=== PATIENT | female | born 1980 | race Two or more races ===

== ENCOUNTER 2019-11-12 12:00 | Inpatient (IN) | payer MEDICAID, OTHER, SELFPAY ==
[~2019-11-12] VITALS: Ht 170.2 cm; Wt 103.5 kg
[2019-11-12] MEDS ORDERED: SODIUM CHLORIDE 0.9% 1,000 ML IVB ONE (12:56)
[2019-11-12] MEDS ORDERED: SODIUM CHLORIDE 0.9% 1,000 ML IV ONE (12:56)
[2019-11-12 16:20] LABS: Basophils # (auto) 0 10 ^3/uL (0-0.2); Basophils % (auto) 0.2 % (0.0-2.0); Eosinophils # (auto) 0 10 ^3/uL (0-0.8); Hematocrit 42.6 % (36.0-46.0); Hemoglobin 13.9 g/dL (12.2-16.2); Lymphocytes # (auto) 1.5 10 ^3/uL (0.4-5.4); Lymphocytes % (auto) 19.4 % (10.0-50.0); Mean Corpuscular Hemoglobin 28.6 pg (28.0-32.0); Mean Corpuscular Hgb Conc. 32.6 g/dL (32.0-36.0); Mean Corpuscular Volume 87.6 fL (80.0-100.0); Monocytes # (auto) 0.6 10 ^3/uL (0-1.3); Monocytes % (auto) 7.4 % (0.0-12.0); Neutrophils # (auto) 5.6 10 ^3/uL (1.6-8.6); Nucleated Red Blood Cells % 0.1 %; Platelet Count (auto) 237 10^3/uL (140-450); Red Blood Cells 4.87 10^6/uL (4.0-5.20); Red Cell Distribution Width 14.4 % (11.8-14.3); White Blood Cell 7.6 10^3/uL (4.4-10.8)
[2019-11-12 16:38] LABS: Alanine Aminotransferase 36 U/L (13-56); Albumin 3.3 g/dL (3.4-5.0); Anion Gap 10 (5-15); Aspartate Aminotransferase 24 U/L (15-37); Blood Urea Nitrogen 10 mg/dL (7-18); Calcium 8.8 mg/dL (8.5-10.1); Carbon Dioxide 25 mmol/L (21-32); Chloride 103 mmol/L (98-107); GFR African American 107 mL/min; GFR Non-African American 88 mL/min; Glucose 69 mg/dL (74-106); Potassium 3.1 mmol/L (3.5-5.1); Sodium 138 mmol/L (136-145)
[2019-11-12 16:43] LABS: Alkaline Phosphatase 68 U/L (45-117); Bilirubin, Total 0.5 mg/dL (0.2-1.0)
[2019-11-12 16:47] LABS: Beta HCG, Quantitative < 1 mlU/mL (1-3); Thyroid Stimulating Hormone 0.33 uIU/mL (0.358-3.74)
[2019-11-12] MEDS ORDERED: cefTRIAXone 1GM/50ML D5W 50 ML IV ONE (18:00)
[2019-11-12] MEDS ORDERED: AZITHROMYCIN 500MG/ 250ML 250 ML IV ONE (18:00)
[2019-11-12] MEDS ORDERED: DexAMETHasone SOD PHOS 4 MG/1ML SDV INJ IV ONE (18:00)
[2019-11-12] MEDS ORDERED: POTASSIUM EFFERVESENT TAB 25 MEQ PO ONE (18:00)
[2019-11-12] MEDS ORDERED: ASCORBIC ACID 500 MG TAB PO ONE (18:00)
[2019-11-12] MEDS ORDERED: ZINC SULFATE 220mg CAP or TAB PO ONE (18:00)
[2019-11-12 19:04] LABS: Urine Bacteria NONE SEEN /hpf (None Seen); Urine Blood 1+ /uL (Negative); Urine Mucus FEW (None Seen); Urine Specific Gravity 1.033 (1.001-1.035); Urine WBC 9 /hpf (0 - 5)
[2019-11-12 20:52] LABS: CRP High Sensitivity 5.57 mg/dL (< 0.3)
[2019-11-12] MEDS ORDERED: HYDROcodone-ACET 5/325MG TAB PO PRN (21:00)
[2019-11-12] MEDS ORDERED: NITROGLYCERIN 0.4 MG SL TAB SL PRN (21:00)
[2019-11-12] MEDS ORDERED: HYDROmorphone HCL 2 MG/ML VL IV PRN (21:00)
[2019-11-12] MEDS ORDERED: DOCUSATE SOD 100 MG CAP PO PRN (21:00)
[2019-11-12] MEDS ORDERED: ONDANSETRON HCL 4 MG/2 ML VIAL IV PRN (21:00)
[2019-11-12] MEDS ORDERED: ACETAMINOPHEN 500 MG TAB PO PRN (21:00)
[2019-11-12] MEDS ORDERED: MORPHINE SULF INJ 2 MG/ML SYRINGE 1ML IV PRN ×2 (21:00)
[2019-11-12] MEDS ORDERED: POTASSIUM CHL 20 Meq TABLET PO ONE (21:15)
[2019-11-12] MEDS ORDERED: IOHEXOL 350 MG/ML 100ML IJ ONE (21:25)
[2019-11-12] MEDS: ALBUTEROL SULF HFA 90MCG INH 200DOSE IN SCH (22:00)
--- NOTE | 2019-11-12 23:00 | NUR ---
MS admit from [facility] admitted to tele/MS. Patient oriented to AYE AYON RN primary RN, room 237. Patient weighed by bedscale and encouraged to call if they need something. All questions and concerns addressed, patient verbalized understanding. Bed locked, in lowest position, call light within reach, side rails up x2. Will continue to monitor Q 1hr and PRN.
[2019-11-12] MEDS: SODIUM CHLOR 0.9% PF (SALINE LOCK) 10ML VIAL/SYR IV SCH (23:59)
[2019-11-12] MEDS: ENOXAPARIN SOD 100 MG/1 ML SYRINGE SC SCH (23:59)
[2019-11-13 00:05] VITALS: BP 118/83
[2019-11-13 05:00] VITALS: BP 116/58
[2019-11-13] MEDS: SODIUM CHLOR 0.9% PF (SALINE LOCK) 10ML VIAL/SYR IV SCH ×2 (06:49→13:05)
[2019-11-13 07:10] LABS: Basophils # (auto) 0 10 ^3/uL (0-0.2); Basophils % (auto) 0.2 % (0.0-2.0); Eosinophils # (auto) 0 10 ^3/uL (0-0.8); Hematocrit 41.1 % (36.0-46.0); Hemoglobin 13.4 g/dL (12.2-16.2); Lymphocytes # (auto) 1.1 10 ^3/uL (0.4-5.4); Lymphocytes % (auto) 23.2 % (10.0-50.0); Mean Corpuscular Hemoglobin 28.3 pg (28.0-32.0); Mean Corpuscular Hgb Conc. 32.5 g/dL (32.0-36.0); Mean Corpuscular Volume 87.3 fL (80.0-100.0); Monocytes # (auto) 0.2 10 ^3/uL (0-1.3); Monocytes % (auto) 5.1 % (0.0-12.0); Neutrophils # (auto) 3.5 10 ^3/uL (1.6-8.6); Neutrophils % (auto) 71.5 % (37.0-80.0); Nucleated Red Blood Cells % 0.1 %; Platelet Count (auto) 252 10^3/uL (140-450); Red Blood Cells 4.71 10^6/uL (4.0-5.20); White Blood Cell 4.8 10^3/uL (4.4-10.8)
--- NOTE | 2019-11-13 07:20 | NUR ---
Opening Shift Note Assumed care of patient, awake and alert. No S/S of distress/SOB or pain. Insructed on POC and to callfor assist PRN, will continue to monitor for changes Q1hr and PRN.
[2019-11-13] MEDS: ALBUTEROL SULF HFA 90MCG INH 200DOSE IN SCH ×2 (07:30→13:05)
[2019-11-13 07:37] LABS: Potassium 3.8 mmol/L (3.5-5.1)
--- NOTE | 2019-11-13 07:40 | NUR ---
PT. REFUSED TX., PT. STATES SHE DOESN'T NEED TX'S. , SHE STATE HER OXYGEN SATURATIONS HAVE BEEN 100% FOR TWO DAYS. PT. ALSO DENIES ANY SOB. HR=77,RR=16, WI04=028%. Addendum: 11/13/19 at 0951 by Linda Ortiz RT Amended: Links added.
[2019-11-13 07:52] LABS: Albumin 3.2 g/dL (3.4-5.0); Bilirubin, Total 0.4 mg/dL (0.2-1.0); Calcium 8.5 mg/dL (8.5-10.1); Magnesium 2.4 mg/dL (1.6-2.6)
[2019-11-13] MEDS ORDERED: IOHEXOL 350 MG/ML 100ML IJ ONE (08:08)
--- NOTE | 2019-11-13 08:21 | NUR ---
RADIOLOGY, SECURITY Called to transport pt to CT for angio pt awaiting in ANTE room N95 mask on
[2019-11-13 09:00] VITALS: BP 128/78
[2019-11-13] MEDS: ENOXAPARIN SOD 100 MG/1 ML SYRINGE SC SCH (09:37)
[2019-11-13] MEDS ORDERED: CHOLECALCIFEROL (VITD3) 1,000UNIT=25mCg TAB PO SCH (10:00)
[2019-11-13] MEDS ORDERED: AZITHROMYCIN 250 MG TAB PO SCH (10:00)
[2019-11-13] MEDS ORDERED: ZINC SULFATE 220mg CAP or TAB PO SCH (10:00)
[2019-11-13] MEDS ORDERED: ASCORBIC ACID 1,000 MG TAB PO SCH (10:00)
[2019-11-13] MEDS ORDERED: cefTRIAXone 1GM/50ML D5W 50 ML IV SCH (10:00)
[2019-11-13 13:00] VITALS: BP 130/62
--- NOTE | 2019-11-13 13:01 | NUR ---
MD FU ROUNDED ON PATIENT PLAN FOR DISCHARGE TODAY
--- NOTE | 2019-11-13 13:57 | NUR ---
PAGED MD FU PATIENTSTATES THERE RIDE IS HERE ALREADY INFORMED PATIENT THAT ORDERS HAVE NOT BEEN INPUTED
--- NOTE | 2019-11-13 14:11 | NUR ---
PAGED MD BEST REGARDING PT DISCHARE
--- NOTE | 2019-11-13 14:57 | NUR ---
pt discharged home off unit iv removed tele box removed sent back to tele room
== END 2019-11-13 14:57 | disposition home or self-care (01) | DRG 137 ==
LOC: ER 12:00 → TELE 12:01 → TELE-EAST 22:48
PROVIDERS: ADMIT Internal Medicine; ATTEND Internal Medicine
DX: U07.1 COVID-19 (principal); J12.89 Other viral pneumonia; N39.0 Urinary tract infection, site not specified; I10 Essential (primary) hypertension; E87.6 Hypokalemia; E66.9 Obesity, unspecified; Z68.35 Body mass index [BMI] 35.0-35.9, adult
CPT/HCPCS: 36415; 71045; 71275; 80053; 81001; 82728; 83036; 83605; 83615; 83735; 84439; 84443; 84484; 84702; 85025; 85379; 85652; 86141; 87070; 87804; 87880; 93005; 96365; 96367; 96375; G0378; J0696; J1100

== ENCOUNTER 2021-08-11 13:29 | Emergency (ER) | payer MEDICAID, OTHER ==
[~2021-08-11] VITALS: Ht 170.2 cm; Wt 100.2 kg
[2021-08-11 14:04] LABS: Urine Bacteria NONE SEEN /hpf (None Seen); Urine Blood 3+ /uL (Negative); Urine WBC 425 /hpf (0 - 5)
[2021-08-11 14:30] VITALS: BP 138/81
[2021-08-11] MEDS ORDERED: SULF400T11 PO (14:39)
[2021-08-11] MEDS ORDERED: PRED20TA2 PO (14:39)
[2021-08-11] MEDS ORDERED: PHEN200T16 PO (14:39)
== END 2021-08-11 14:56 | disposition home or self-care (01) ==
LOC: ER 13:29
DX: N39.0 Urinary tract infection, site not specified (principal); L23.9 Allergic contact dermatitis, unspecified cause
CPT/HCPCS: 81001

== ENCOUNTER 2022-03-03 14:57 | Inpatient (IN) | payer OTHER ==
[~2022-03-03] VITALS: Ht 170.2 cm; Wt 100.0 kg
[~2022-03-03 14:57] MED LIST: PHEN200T16 PO; PRED20TA2 PO; SULF400T11 PO
[2022-03-03 15:27] LABS: Basophils # (auto) 0.1 10 ^3/uL (0-0.2); Basophils % (auto) 1.2 % (0.0-2.0); Eosinophils # (auto) 0.1 10 ^3/uL (0-0.8); Eosinophils % (auto) 1.6 % (0.0-7.0); Hematocrit 38.1 % (36.0-46.0); Hemoglobin 12.7 g/dL (12.2-16.2); Lymphocytes # (auto) 2.7 10 ^3/uL (0.4-5.4); Lymphocytes % (auto) 34.4 % (10.0-50.0); Mean Corpuscular Hemoglobin 28.6 pg (28.0-32.0); Mean Corpuscular Hgb Conc. 33.2 g/dL (32.0-36.0); Mean Corpuscular Volume 86.2 fL (80.0-100.0); Monocytes # (auto) 0.6 10 ^3/uL (0-1.3); Neutrophils # (auto) 4.4 10 ^3/uL (1.6-8.6); Neutrophils % (auto) 55.8 % (37.0-80.0); Nucleated Red Blood Cells % 0.1 %; Red Blood Cells 4.43 10^6/uL (4.0-5.20); Red Cell Distribution Width 14.8 % (11.8-14.3); White Blood Cell 7.9 10^3/uL (4.4-10.8)
[2022-03-03 15:47] LABS: Albumin 3.2 g/dL (3.4-5.0); BUN/Creatinine Ratio 10.5; Calcium 8.6 mg/dL (8.5-10.1)
[2022-03-03 15:51] LABS: Bilirubin, Total 0.4 mg/dL (0.2-1.0); Total Protein 6.8 g/dL (6.4-8.2)
[2022-03-03] MEDS ORDERED: ONDANSETRON HCL 4 MG/2 ML VIAL IV ONE (17:45)
[2022-03-03] MEDS ORDERED: NITROGLYCERIN 0.4 MG SL TAB SL ONE (17:45)
[2022-03-03] MEDS ORDERED: MORPHINE SULFATE INJ 2 MG/ml SYRG IV ONE (17:45)
[2022-03-03] MEDS ORDERED: NITROGLYCERIN 0.4 MG SL TAB SL PRN (18:45)
[2022-03-03] MEDS ORDERED: ONDANSETRON HCL 4 MG/2 ML VIAL IV PRN (18:45)
[2022-03-03] MEDS ORDERED: MORPHINE SULFATE 4 MG/ML SYR/VIAL IV PRN (18:45)
[2022-03-03] MEDS ORDERED: ACETAMINOPHEN 325 MG TAB PO PRN (18:45)
[2022-03-03] MEDS ORDERED: ATORVASTATIN 20 MG TAB PO ONE (18:45)
[2022-03-03 20:23] VITALS: BP 134/67
[2022-03-04] MEDS ORDERED: ASPirin 325 MG TAB PO SCH (10:00)
[2022-03-04] MEDS ORDERED: LISINOPRIL 5 MG TAB PO SCH (10:00)
[2022-03-04] MEDS ORDERED: DOCUSATE SOD 100 MG CAP PO SCH (10:00)
== END 2022-03-04 00:59 | disposition left against medical advice (07) | DRG 198 ==
LOC: ER 14:57 → TELE 18:45
PROVIDERS: ADMIT Nurse Practitioner Family; ATTEND Nurse Practitioner Family
DX: I24.9 Acute ischemic heart disease, unspecified (principal); E44.1 Mild protein-calorie malnutrition; R09.1 Pleurisy; I10 Essential (primary) hypertension; Z53.29 Procedure and treatment not carried out because of patient's decision for other reasons; Z86.16 Personal history of COVID-19; Z90.49 Acquired absence of other specified parts of digestive tract; Z83.3 Family history of diabetes mellitus; Z68.34 Body mass index [BMI] 34.0-34.9, adult; Z82.49 Family history of ischemic heart disease and other diseases of the circulatory system; Z98.51 Tubal ligation status
CPT/HCPCS: 36415; 71045; 80053; 83735; 84100; 84484; 85025; 85379; 93005; 96372; G0378